=== PATIENT | male | born 1955 | race Caucasian/White ===

== ENCOUNTER → 2023-03-12 08:58 | Outpatient (REF) | payer MEDICARE, SELFPAY ==
--- NOTE | 2023-03-12 09:04 | CA_ITS ---
Transthoracic Echocardiogram Patient (Last, First, Middle): Navid Castaneda B Gender: Male Date of : 1955 Age: 67 Procedure Date: 03/12/2023 Procedure Type: Transthoracic Echocardiogram Location: OP Height: 177.8 cm Weight: 72.58 kg BSA: 1.90 m2 Heart Rate: bpm BP: 118 / 60 mmHg Provider Relations Manager: Referring MD: Eagle Tucker MD [employer] Furnace Tender: Otoniel Holder MD Symptoms: [id number] SYNCOPE Study Quality: Good ECG Rhythm: Sinus Conclusions: - Essentially normal study Findings Left Ventricle Normal left ventricular size, thickness, and systolic function. The visually estimated ejection fraction is between 55-60%. Spectral Doppler is indicative of a normal filling pattern. Peak GLS is -20.7%, within normal limits Right Ventricle Mildly increased right ventricular cavity size. There is normal right ventricular systolic function. Atria Both atria are normal in size. There is no evidence of interatrial shunt. Aortic Valve Normal aortic valve structure and function. There is no aortic valve stenosis. There is trace (trivial) aortic valve regurgitation. Mitral Valve Normal mitral valve structure and function. There is no mitral valve regurgitation. There is no mitral valve stenosis. Pulmonic Valve The pulmonic valve is likely normal. There is trace pulmonic valve regurgitation. Tricuspid Valve Normal tricuspid valve structure. There is trace tricuspid valve regurgitation. The right ventricular systolic pressure is normal. The right ventricular systolic pressure is 17 mmHg. Normal right atrial pressure. There is no evidence of pulmonary hypertension. Great Vessels All visible segments of the aorta are normal in size. The pulmonary artery was not well visualized. There is no dilatation of the ascending aorta. Venous The inferior vena cava is normal in size and collapses greater than 50% with inspiration. Pericardium/Pleural There is no evidence of pericardial effusion. Prior Study Comparison No prior study available for comparison. Measurements 2D Linear Measurements IVSd: 0.99 0.6-0.9/0.6-1.0 cm LVIDd: 4.33 3.9-5.3/4.2-5.9 cm LVIDd Index: 2.28 2.4-3.2/2.2-3.1 cm/m2 LVIDs: 2.33 2.0-3.6 cm LVPWd: 1.05 0.7-1.1 cm Ao Root: 3.50 2.1-3.5 cm LA Diam: 3.30 2.7-3.8/3.0-4.0 cm LAIDs Index: 1.74 1.5-2.3 cm/m2 LV Mass: 184.26 67-162/88-224 g LV Mass Index: 96.98 43-95/49-115 g/m2 LVOT Diam: 2.00 3.0+(-)1.3 cm 2D Systolic Function EF 4C: 53.10 >55% EF 2C: 59.70 >55% EF BiP: 56.20 >55% Mitral Valve MV Pk E: 0.66 MV PK A: 0.56 MV Decel Time: 255.00 E/A: 1.20 E'Lateral: 11.40 E'Medial: 8.16 E/E' Med: 8.00 E/E' Lat: 5.80 PHT: 75.00 MVA PHT: 2.93 Decel [place]: 2.57 Aortic Valve AoV Pk Clay: 1.72 AoV Mn Clay: 1.15 AoV VTI: 0.47 AoV Pk Grad: 12.00 Aov Mn Grad: 6.00 TIFFANY Cont.VTI: 1.83 LVOT LVOT Pk Clay: 1.11 LVOT Mn Clay: 0.68 LVOT VTI: 0.27 LVOT Pk Grad: 5.00 LVOT Mn Grad: 2.00 LVOT Diam: 2.00 LVOT Area: 3.14 Diastolic Function MV Pk E: 0.66 MV Pk A: 0.56 E/A: 1.20 E'Medial: 8.16 E/E' Med: 8.00 E' Laterial: 11.40 E/E' Lat: 5.80 Right Ventricle TAPSE (mm): 31.00 TVS' Clay: 15.00 Tricuspid Valve TR Pk Clay: 2.09 TR Pk Grad: 17.00 RA Press: 3.00 RVSP: 17.00 Great Vessels Aorta Ao Root-2D: 3.50 2.0-3.7 cm Ao Asc: 3.40 2.1-3.4 cm Pulmonary Valve PV Pk Clay: 1.12 Peak PV Grad: 5.00 Updated in Other Vendor System with Status of Final Otoniel Holder MD electronically signed on 03/13/2023 2:43:54 PM with status of Final
== END ==
LOC: HO.CARD 08:58
PROVIDERS: PCP Internal Medicine; Visit Provider Internal Medicine Cardiovascular Disease
DX: R55 Syncope and collapse (principal)
CPT/HCPCS: 93306; 93356

== ENCOUNTER → 2023-03-12 09:04 | Outpatient (BNV) | payer MEDICARE, SELFPAY | PROVIDERS: PCP Internal Medicine; Visit Provider Internal Medicine Cardiovascular Disease | DX: R55 Syncope and collapse (principal) | CPT/HCPCS: 93306 ==